=== PATIENT | female | born 1995 | race Caucasian/White ===

== ENCOUNTER 2019-04-13 00:10 | Emergency (ER) | payer SELFPAY ==
[~2019-04-13] VITALS: Ht 160 cm; Wt 56.2 kg
[2019-04-13 00:25] VITALS: BP 109/71
--- NOTE | 2019-04-13 00:33 | NUR ---
PT TAKEN TO BED 11
--- NOTE | 2019-04-13 00:33 | NUR ---
24 Y/O FEAMLE S/P FALL AT 1630 , WITH LEFT LOWER BACK PAIN, THIGH WHEN SHE WAS GETTING UP TO HELP HER DAUGHTER AND SLIPPED; FELL ON BACK. PAIN 6/10 PAIN RADIATES WHEN SHE MOVE; DENIES N/V/D. NO TRAUMATIC INJURY TO THE HEAD OR KO. ERMD MADE AWARE OF STATUS. SIDE RAILSX1. WILL CONTINUE TO MONITOR. PMH:DENIES RX:DENIES NKDA
[2019-04-13] MEDS ORDERED: IBUPROFEN 600 MG TAB PO ONE (00:40)
--- NOTE | 2019-04-13 02:16 | NUR ---
Note marilu in EDM - 04/13/19 at 0222 by MICHELLE Patient discharged with v/s stable. Written and verbal after care instructions given and explained. Patient alert, oriented and verbalized understanding of instructions. Ambulatory with steady gait. All questions addressed prior to discharge. ID band removed. Patient advised to follow up with PMD. Rx of NAPROSYN given. Patient educated on indication of medication including possible reaction and side effects. Opportunity to ask questions provided and answered.
--- NOTE | 2019-04-13 02:16 | NUR ---
Patient discharged with v/s stable. Written and verbal after care instructions given and explained. Patient alert, oriented and verbalized understanding of instructions. Ambulatory with steady gait. All questions addressed prior to discharge. ID band removed. Patient advised to follow up with PMD. Rx of NAPROSYN given. Patient educated on indication of medication including possible reaction and side effects. Opportunity to ask questions provided and answered. DISCHARGED BY DR. WILKS.
== END 2019-04-13 02:16 | disposition home or self-care (01) ==
LOC: MED 00:10
DX: S33.5XXA Sprain of ligaments of lumbar spine, initial encounter (principal); F17.200 Nicotine dependence, unspecified, uncomplicated; Z71.6 Tobacco abuse counseling; W19.XXXA Unspecified fall, initial encounter; Y93.89 Activity, other specified; Y92.89 Other specified places as the place of occurrence of the external cause; Y99.8 Other external cause status
CPT/HCPCS: 72110; 81002; 81025; 99283